=== PATIENT | female | born 1980 | race Caucasian/White ===

== ENCOUNTER 2017-10-29 12:47 | Emergency (ER) | payer SELFPAY ==
[~2017-10-29] VITALS: Ht 170.2 cm; Wt 119.3 kg
[2017-10-29 13:46] LABS: Basophils # (auto) 0.1 uL; Basophils % (auto) 0.4 % (0.0-2.0); Eosinophils # (auto) 0.1 uL; Eosinophils % (auto) 0.3 % (0.0-7.0); Hematocrit 46.8 % (36.0-46.0); Hemoglobin 15.7 g/dL (12.2-16.2); Lymphocytes # (auto) 1.9 uL; Lymphocytes % (auto) 10.1 % (10.0-50.0); Mean Corpuscular Hemoglobin 29.9 pg (28.0-32.0); Mean Corpuscular Hgb Conc. 33.6 g/dL (32.0-36.0); Neutrophils # (auto) 16.1 uL; Neutrophils % (auto) 84.2 % (37.0-80.0); Platelet Count (auto) 353 10^3/uL (140-450); Red Blood Cells 5.26 10^6/uL (4.0-5.20); White Blood Cell 19.1 10^3/uL (4.4-10.8)
[2017-10-29 13:53] LABS: Urine Bacteria NONE SEEN /hpf (None Seen); Urine Blood Negative /uL (Negative); Urine Mucus FEW (None Seen); Urine Specific Gravity 1.025 (1.001-1.035); Urine WBC 45 /hpf (0 - 5)
[2017-10-29 14:02] LABS: Albumin 3.6 g/dL (3.4-5.0); BUN/Creatinine Ratio 15.9; Potassium 4.1 mmol/L (3.5-5.1)
[2017-10-29 14:04] LABS: Bilirubin, Total 0.9 mg/dL (0.2-1.0); Total Protein 8.2 g/dL (6.4-8.2)
== END 2017-10-29 15:48 | disposition home or self-care (01) ==
LOC: ER 12:47
DX: N39.0 Urinary tract infection, site not specified (principal); F17.210 Nicotine dependence, cigarettes, uncomplicated
CPT/HCPCS: 36415; 80053; 81001; 81025; 83690; 85025

== ENCOUNTER 2019-04-21 15:00 | Inpatient (IN) | payer BC ==
[~2019-04-21] VITALS: Ht 170.2 cm; Wt 117.7 kg
[2019-04-21] MEDS ORDERED: ONDANSETRON HCL 4 MG/2 ML VIAL IV ONE (16:15)
[2019-04-21] MEDS ORDERED: FAMOTIDINE (10MG/ML) 2ML VL IV ONE (16:15)
[2019-04-21] MEDS ORDERED: MORPHINE SULFATE 4 MG/ML SYR/VIAL IV ONE (16:15)
[2019-04-21 16:23] LABS: Basophils # (auto) 0.1 uL; Basophils % (auto) 0.4 % (0.0-2.0); Eosinophils # (auto) 0.1 uL; Eosinophils % (auto) 0.8 % (0.0-7.0); Hematocrit 41.3 % (36.0-46.0); Hemoglobin 13.6 g/dL (12.2-16.2); Lymphocytes # (auto) 1.9 uL; Mean Corpuscular Hemoglobin 29.6 pg (28.0-32.0); Mean Corpuscular Hgb Conc. 32.9 g/dL (32.0-36.0); Mean Corpuscular Volume 89.7 fL (80.0-100.0); Monocytes # (auto) 0.7 uL; Monocytes % (auto) 4.7 % (0.0-12.0); Neutrophils % (auto) 80.1 % (37.0-80.0); Platelet Count (auto) 326 10^3/uL (140-450); Red Cell Distribution Width 13.3 % (11.8-14.3); White Blood Cell 13.7 10^3/uL (4.4-10.8)
[2019-04-21 16:25] LABS: Albumin 3.1 g/dL (3.4-5.0); Calcium 8.8 mg/dL (8.5-10.1); Potassium 3.8 mmol/L (3.5-5.1)
[2019-04-21 16:35] LABS: BUN/Creatinine Ratio 20.8; Bilirubin, Total 0.4 mg/dL (0.2-1.0); Total Protein 7.2 g/dL (6.4-8.2)
[2019-04-21 18:43] LABS: Urine Bacteria FEW /hpf (None Seen); Urine Blood 2+ /uL (Negative); Urine Hyaline Cast FEW /lpf (0 - 2); Urine Mucus FEW (None Seen); Urine Specific Gravity 1.028 (1.001-1.035); Urine WBC 4 /hpf (0 - 5)
[2019-04-22] MEDS ORDERED: MORPHINE SULFATE 4 MG/ML SYR/VIAL IV PRN (00:30)
[2019-04-22] MEDS ORDERED: ONDANSETRON HCL 4 MG/2 ML VIAL IV PRN (00:30)
[2019-04-22] MEDS ORDERED: SODIUM CHLORIDE 0.9% 1,000 ML IV SCH (00:30)
[2019-04-22 06:39] LABS: Basophils # (auto) 0 uL; Basophils % (auto) 0.4 % (0.0-2.0); Eosinophils # (auto) 0.1 uL; Eosinophils % (auto) 0.6 % (0.0-7.0); Hematocrit 39.4 % (36.0-46.0); Hemoglobin 13.2 g/dL (12.2-16.2); Lymphocytes # (auto) 2.6 uL; Lymphocytes % (auto) 26.6 % (10.0-50.0); Mean Corpuscular Hemoglobin 30.1 pg (28.0-32.0); Mean Corpuscular Hgb Conc. 33.5 g/dL (32.0-36.0); Mean Corpuscular Volume 89.8 fL (80.0-100.0); Monocytes # (auto) 0.5 uL; Monocytes % (auto) 5.5 % (0.0-12.0); Neutrophils # (auto) 6.6 uL; Neutrophils % (auto) 66.9 % (37.0-80.0); Nucleated Red Blood Cells % 0.1 %; Platelet Count (auto) 289 10^3/uL (140-450); Red Blood Cells 4.39 10^6/uL (4.0-5.20); Red Cell Distribution Width 13.4 % (11.8-14.3); White Blood Cell 9.8 10^3/uL (4.4-10.8)
[2019-04-22 06:58] LABS: Calcium 7.9 mg/dL (8.5-10.1); Chloride 115 mmol/L (98-107); Potassium 3.6 mmol/L (3.5-5.1); Sodium 145 mmol/L (136-145)
[2019-04-22 07:01] LABS: Alanine Aminotransferase 25 U/L (13-56); Albumin 2.7 g/dL (3.4-5.0); Anion Gap 8 (5-15); BUN/Creatinine Ratio 16.3; Blood Urea Nitrogen 8 mg/dL (7-18); Carbon Dioxide 22 mmol/L (21-32); GFR African American 182 mL/min; GFR Non-African American 150 mL/min; Glucose 81 mg/dL (74-106); Lipase 62 U/L (73-393)
[2019-04-22 07:06] LABS: Alkaline Phosphatase 125 U/L (45-117); Aspartate Aminotransferase 19 U/L (15-37); Bilirubin, Total 0.4 mg/dL (0.2-1.0)
--- NOTE | 2019-04-22 07:30 | NUR ---
MS admit from ER CLAUDIASAMANTHA admitted to tele/MS after SBAR received. Patient oriented to Susan Hoff, primary RN, unit, room, bed, and unit policies regarding patient care and visiting hours. Patient weighed by bedscale and encouraged to call if they need something. All questions and concerns addressed, patient verbalized understanding. Note: PT IS AWAKE AND ALERT, NO SIGNS OF DISTRESSB AT THIS TIME , WILL CONTINUE TO MONITOR.
[2019-04-22 07:40] VITALS: BP 108/75
[2019-04-22] MEDS ORDERED: PNEUMOCOCCAL VACC POLYS 25 MCG/0.5 ML VIAL IM ONE (08:15)
[2019-04-22] MEDS ORDERED: cefTRIAXone 1GM/50ML D5W 50 ML IV SCH (09:00)
[2019-04-22] MEDS ORDERED: PANTOPRAZOLE 40 MG/10 ML VIAL INJ IV SCH (10:00)
--- NOTE | 2019-04-22 10:55 | NUR ---
DR. HANSON AT BEDSIDE PER DR. HANSON PT CAN HAVE CLEAR LIQUID, FULL LIQUID FOR LUNCH AND SOFT DIET FOR DINNER IF PT TOLERATES PT CAN GO HOME.
--- NOTE | 2019-04-22 11:18 | NUR ---
DR. HANSON ORDERED STAT FASTING TRIGLYCERIDE
--- NOTE | 2019-04-22 12:15 | NUR ---
PT SEEN BY ELY SANCHES
[2019-04-22 13:00] VITALS: BP 92/40
--- NOTE | 2019-04-22 13:53 | NUR ---
DR HANSON MADE AWARE OF THE TRIGLYCERIDE RESULT, AND PT IS ASKING FOR PAIN MEDICATION, PER PT IBUPROFEN IS NOT WORKING FOR HER. WAITING FOR CALL BACK.
--- NOTE | 2019-04-22 15:20 | NUR ---
PT WAS GIVEN CRACKERS AND JUICE, PT TOLERATED IT WELL, NO COMPLAINTS OF NAUSEA, VOMITING OR ABDOMINAL PAIN.
--- NOTE | 2019-04-22 15:46 | NUR ---
SPOKE WITH DR. HANSON, HE SAID PT CAN RETURN TO WORK ON Saturday, PT GIVEN RETURN TO WORK FORM.
--- NOTE | 2019-04-22 16:17 | NUR ---
Discharge instructions given as ordered. Encourage to follow up with DR. PENA ON MAY 11 AT 3:45PM as instructed. All questions and concerns addressed. Patient verbalized understanding. Medication reconciliation form completed and copy given to patient. IV removed with catheter intact, pressure dressing applied. Patient PREFERRED TO WALK TO VEHICLE with all personal belongings, accompanied by staff and BOYFRIEND. No distress noted at time of departure.
== END 2019-04-22 16:17 | disposition home or self-care (01) | DRG 439 ==
LOC: ER 15:00 → OVERFLOW 15:01 → EAST 04-22 07:30
PROVIDERS: ADMIT Nurse Practitioner; ATTEND Internal Medicine
DX: K85.00 Idiopathic acute pancreatitis without necrosis or infection (principal); N39.0 Urinary tract infection, site not specified; Z68.41 Body mass index [BMI] 40.0-44.9, adult; E66.01 Morbid (severe) obesity due to excess calories; E87.8 Other disorders of electrolyte and fluid balance, not elsewhere classified; F17.210 Nicotine dependence, cigarettes, uncomplicated; M46.00 Spinal enthesopathy, site unspecified; M51.36 Other intervertebral disc degeneration, lumbar region; Z98.84 Bariatric surgery status; Z71.3 Dietary counseling and surveillance; Z79.899 Other long term (current) drug therapy
CPT/HCPCS: 36415; 71046; 74176; 76705; 80053; 81001; 82150; 83690; 84478; 85025; C9113; G0378; J0696; J2405; J3490